=== PATIENT | female | born 1985 | race Hispanic/Latino ===

== ENCOUNTER 2016-11-22 14:12 | Emergency (ER) | payer OTHER ==
--- NOTE | 2016-11-22 14:47 | ED GENERAL ADULT ---
History of Present Illness General Chief Complaint: General Adult Stated Complaint: PT HAS COUGHING,DIZZY,LIGTHED HEADED Source: patient Exam Limitations: no limitations Vital Signs & Intake/Output Vital Signs & Intake/Output Vital Signs Date Time Temp Pulse Resp B/P Pulse O2 O2 Flow FiO2 Ox Delivery Rate 11/22 1520 99.9 11/22 1424 100.4 11/22 1423 100.4 80 20 120/84 98 Room Air Allergies Coded Allergies: Penicillins (11/22/16) Reconcile Medications Methylprednisolone. (Medrol) 4 MG TAB.DS.PK 1 DP PO AD BRONCHITIS 6 on day 1 then reduce by one tablet daily until gone Oseltamivir Phosphate (Tamiflu) 75 MG CAPSULE 1 CAP PO BID INFLUENZA Robitussin AC (Guaifenesin-Codeine Syrup) 200 MG-20 MG/10 ML LIQUID 10 ML PO Q6HR PRN COUGH Triage Note: PT PRESENTS TO ER FOR NON PRODUCTIVE COUGH SINCE MONDAY. PT DENIES FEVERS AT HOME. PT TEMP ON ARRIVAL IN TRIAGE IS 100.4 PT STATE SHE WAS SEEN AT WALK IN CLIN YESTERDAY AND GIVEN COUGH MEDICATION AND DX WITH BRONCHITIS. PT DENIES N/V TODAY BUT STATE SHE VOMITTED YESTERDAY Triage Nurses Notes Reviewed? yes Onset: Gradual Duration: day(s): (2) Timing: remote history Injury Environment: home Severity: moderate Severity Numbers: 8 No Modifying Factors: none : No Patient currently breastfeeds: No HPI: Patient is a 31-year-old female presenting to the emergency department chief complaint of nonproductive cough, malaise, tactile fevers as by going on since yesterday. She was seen in walk-in and diagnosis of bronchitis. No relief with Tessalon Perles. Denies any recent travel. Here daughter is sick with similar symptoms. Denies any nausea or vomiting. No chest pain or palpitations. Denies any lower extremity swelling. Slight decreased by mouth intake for the last couple days. (BRYON ANDRES,JAMES) Past History Travel History Traveled to [place] past 21 day No Medical History Any Pertinent Medical History? see below for history Neurological: NONE EENT: NONE Cardiovascular: NONE Respiratory: NONE Gastrointestinal: NONE Hepatic: NONE Renal: NONE Musculoskeletal: NONE Psychiatric: NONE Endocrine: NONE Surgical History Surgical History: non-contributory Psychosocial History What is your primary language Croatian Tobacco Use: Current Not Daily Daily Tobacco Use Amount/Type: =< 4 Cigarettes daily Family History Hx Contributory? No (JAMES ROBERTO) Review of Systems Review of Systems Constitutional: Reports: malaise. Comments Review of systems: See HPI, All other systems negative. Constitutional, no weight loss HEENT: No visual changes no sore throat Cardiovascular: No chest pain ,palpitation Skin, no jaundice no rashes Respiratory: No dyspnea sputum or hemoptysis GI: No nausea no vomiting Muscle skeletal: no back pain, no neck pain, Neurologic: No numbness no confusion Psych: No stress anxiety Immunology: No splenectomy or history of AIDS (JAMES ROBERTO) Physical Exam Physical Exam General Appearance: well developed/nourished, no apparent distress, alert, awake , comfortable Comments: Well-developed well-nourished person in no acute distress HEENT: Pupils equally round and reactive to light and accommodation. Nose is atraumatic. External auditory canal and Tympanic membranes clear. Pharynx normal. No swelling or edema. Neck: Supple, no lymphadenopathy, normal range of motion without pain or tenderness Back: Nontender Cardiovascular: Regular rate and rhythms no murmurs rubs or gallops, normal JVP Respiratory: No respiratory distress.breath sounds clear to auscultation bilaterally. Dry reactive cough on exam. Extremity: No edema Neuro: Alert oriented x3 Skin: No appreciable rash on exposed skin, skin is warm and dry. Psych: Mood and affect is normal, memory and judgment is normal. Core Measures ACS in differential dx? No CVA/TIA Diagnosis: No Severe Sepsis Present: No Septic Shock Present: No (JAMES ROBERTO) Progress Differential Diagnoses I considered the following diagnoses in my evaluation of the patient: Bronchitis, pneumonia, upper respiratory infection, influenza Plan of Care: Orders Procedure Date/time Status VIRAL CULTURE 11/22 1450 Active RAPID VIRAL INFLUENZA A 11/22 1447 Complete Laboratory Tests 11/22/16 1450: Virus Culture Pending Diagnostic Imaging: Viewed by Me: Radiology Read. Discussed w/RAD: Radiology Read. CXR Impression: no acute abnormality, no infiltrates, normal size heart, normal mediastinum Initial ED EKG: none (JAMES ROBERTO) Departure Departure Time of Disposition: 1513 Disposition: HOME OR SELF CARE Condition: Stable Clinical Impression Primary Impression: Influenza A Secondary Impressions: Bronchitis Referrals: UNKNOWN (PCP/Family) Additional Instructions: Follow-up with your primary care physician call to make an appointment. He was given a domestic helper she can follow up with as well. Return for worsening symptoms or concerns. Departure Forms: Customer Survey General Discharge Information Prescriptions: Current Visit Scripts Oseltamivir Phosphate (Tamiflu) 1 CAP PO BID #10 CAP Methylprednisolone. (Medrol) 1 DP PO AD #1 DP 6 on day 1 then reduce by one tablet daily until gone Robitussin AC (Guaifenesin-Codeine Syrup) 10 ML PO Q6HR PRN COUGH #200 (JAMES ROBERTO) PA/POSTPARTUM NURSE Co-Sign Statement Statement: ED Attending supervision documentation- [] I saw and evaluated the patient. I have also reviewed all the pertinent lab results and diagnostic results. I agree with the findings and the plan of care as documented in the PA's/POSTPARTUM NURSE's documentation. x I have reviewed the ED Record and agree with the PA's/POSTPARTUM NURSE's documentation. [] Additions or exceptions (if any) to the PAs/POSTPARTUM NURSE's note and plan are summarized below: [] (LALITA MERRILL,LUIS MIGUEL) Critical Care Note Critical Care Note Critical Care Time: non-applicable (JAMES ROBERTO)
--- NOTE | 2016-11-22 15:10 | RADIOLOGY REPORT ---
EXAMINATION: XR CHEST, 2 VIEWS CLINICAL INFORMATION: Cough. Rule out pneumonia. COMPARISON: None. TECHNIQUE: PA and lateral views of the chest were obtained. FINDINGS: Lungs are clear. No consolidation, pneumothorax, or pleural effusion. Cardiac and mediastinal contours are normal. Pulmonary vasculature is unremarkable. Trachea is midline. Osseous structures are unremarkable. IMPRESSION: Normal chest radiographs.
[2016-11-22] MEDS ORDERED: MEDROL4 M2 PO (15:14)
[2016-11-22] MEDS ORDERED: TAMIFLU75 M1 PO (15:14)
[2016-11-22] MEDS ORDERED: GUAIFENESIN-COD10 ML PO (15:14)
== END 2016-11-22 15:20 ==
LOC: ERH 14:12
DX: J09.X2 Influenza due to identified novel influenza A virus with other respiratory manifestations (principal); Z72.0 Tobacco use
CPT/HCPCS: 87804; 87804-59